=== PATIENT | female | born 1935 | race Caucasian/White ===

== ENCOUNTER 2016-07-23 10:09 | Emergency (ER) | payer MEDICARE, OTHER ==
[~2016-07-23] VITALS: Ht 162.6 cm; Wt 63.5 kg
[2016-07-23 10:10] VITALS: BP 126/64; PULSE 106; RESP 18; TEMP 98.8; O2SAT 95
--- NOTE | 2016-07-23 11:44 | RADRPT ---
EXAM DATE/TIME: 07/23/2016 11:16 [facility] COMPARISON: No previous studies available for comparison. INDICATIONS : Cough, congestion and diarrhea. MEDICAL HISTORY : None. SURGICAL HISTORY : None. ENCOUNTER: Initial ACUITY: 1 day PAIN SCORE: 0/10 LOCATION: Bilateral chest FINDINGS: PA and lateral views of the chest demonstrates hyperinflation which can be seen with CO PD. There are scattered nodular densities. No consolidation. Heart is normal in size. The mediastina l contours are unremarkable. Osseous structures are intact. CONCLUSION: Scattered nodular densities. CT chest recommended No evidence for an infiltrate. Gerson Thakkar MD on July 23, 2016 at 11:40 Board Certified Radiologist. This report was verified electronically.
--- NOTE | 2016-07-23 11:46 | PD ---
HPI Chief Complaint: Cold / Flu Symptoms Time Seen by Provider: 11:43 Travel History International Travel<30 days: No Contact w/Intl Traveler<30days: No Traveled to known affect area: No History of Present Illness HPI Patient is an 81-year-old female presenting to emergency for evaluation of cough , nasal congestion. Patient states her symptoms have been ongoing for 1 week. For the last 2 days she's had one loose bowel movement in the morning each day. She denies any shortness of breath, chest pain, nausea, vomiting, abdominal pain, fevers, chills. Patient presented wanting to see Dr. Fuller her primary doctor. Patient's past medical history significant for thyroid disorder. [facility] Past Medical History Immunizations Current: No Thyroid Disease: Yes Influenza Vaccination: No ?: Not Past Surgical History Tonsillectomy: Yes Social History Alcohol Use: Yes (SOCIAL) Tobacco Use: No (quit 30 years ago) Substance Use: No Allergies-Medications (Allergen,Severity, Reaction): Coded Allergies: Penicillin (Verified Allergy, Severe, HIVES, 07/23/16) Review of Systems Except as stated in HPI: all other systems reviewed are Neg General / Constitutional: Positive: Other (feels tired), No: Fever, Chills HENT: Positive: Rhinitis, Congestion, No: Headaches, Lightheadedness, Sore Throat, Neck Pain, Ear Discharge Cardiovascular: No: Chest Pain or Discomfort Respiratory: Positive: Cough, No: Shortness of Breath, Wheezing, Orthopnea, Pleuritic Pain Gastrointestinal: No: Nausea, Vomiting, Diarrhea, Abdominal Pain Genitourinary: No: Dysuria Musculoskeletal: No: Myalgias Neurologic: No: Weakness, Dizziness, Syncope Physical Exam Narrative GENERAL: Well-developed, well-nourished, alert elderly female. Resting comfortably in no acute distress. SKIN: Focused skin assessment warm/dry. HEAD: Atraumatic. Normocephalic. EYES: Pupils equal and round. No scleral icterus. No injection or drainage. ENT: No nasal bleeding or discharge. Mucous membranes pink and moist. Cobblestone appearance to posterior pharynx. NECK: Trachea midline. No JVD. CARDIOVASCULAR: Regular rate and rhythm. No murmur appreciated. RESPIRATORY: No accessory muscle use. Clear to auscultation. Breath sounds equal bilaterally. GASTROINTESTINAL: Abdomen soft, non-tender, nondistended. Hepatic and splenic margins not palpable. MUSCULOSKELETAL: No obvious deformities. No clubbing. No cyanosis. No edema. NEUROLOGICAL: Awake and alert. No obvious cranial nerve deficits. Motor grossly within normal limits. Normal speech. PSYCHIATRIC: Appropriate mood and affect; insight and judgment normal. Data Data Last Documented VS Vital Signs Date Time Temp Pulse Resp B/P Pulse Ox O2 Delivery O2 Flow Rate FiO2 07/23/16 11:39 96 07/23/16 10:10 98.8 106 18 126/64 Orders Chest, Pa & Lat (07/23/16 ) Ct Thorax/ Chest Wo Iv Contras (07/23/16 ) Complete Blood Count With Diff (07/23/16 12:34) Comprehensive Metabolic Panel (07/23/16 12:34) Labs Laboratory Tests Test 07/23/16 13:00 White Blood Count 11.1 TH/MM3 Red Blood Count 4.43 MIL/MM3 Hemoglobin 12.6 GM/DL Hematocrit 37.6 % Mean Corpuscular Volume 85.0 FL Mean Corpuscular Hemoglobin 28.4 PG Mean Corpuscular Hemoglobin 33.4 % Concent Red Cell Distribution Width 14.4 % Platelet Count 262 TH/MM3 Mean Platelet Volume 7.4 FL Neutrophils (%) (Auto) 85.1 % Lymphocytes (%) (Auto) 9.7 % Monocytes (%) (Auto) 4.7 % Eosinophils (%) (Auto) 0.1 % Basophils (%) (Auto) 0.4 % Neutrophils # (Auto) 9.4 TH/MM3 Lymphocytes # (Auto) 1.1 TH/MM3 Monocytes # (Auto) 0.5 TH/MM3 Eosinophils # (Auto) 0.0 TH/MM3 Basophils # (Auto) 0.0 TH/MM3 CBC Comment AUTO DIFF Sodium Level 134 MEQ/L Potassium Level 4.3 MEQ/L Chloride Level 101 MEQ/L Carbon Dioxide Level 23.6 MEQ/L Anion Gap 9 MEQ/L Blood Urea Nitrogen 14 MG/DL Creatinine 0.79 MG/DL Estimat Glomerular Filtration 70 ML/MIN Rate Random Glucose 126 MG/DL Calcium Level 9.1 MG/DL Total Bilirubin 1.3 MG/DL Aspartate Amino Transf 37 U/L (AST/SGOT) Alanine Aminotransferase 59 U/L (ALT/SGPT) Alkaline Phosphatase 129 U/L Total Protein 7.1 GM/DL Albumin 3.1 GM/DL [facility] Medical Decision Making Medical Screen Exam Complete: Yes Emergency Medical Condition: Yes Interpretation(s) Last Impressions Chest X-Ray 07/23/16 0000 Signed Impressions: Service Date/Time: Saturday, July 23, 2016 11:16 - CONCLUSION: Scattered nodular densities. CT chest recommended No evidence for an infiltrate. Gerson Thakkar MD Chest CT 07/23/16 0000 Signed Impressions: Service Date/Time: Saturday, July 23, 2016 12:05 - CONCLUSION: 1. Multiple bilateral pulmonary nodules characteristic malignancy likely too small for biopsy. Enlarged mediastinal nodes characteristic of malignancy as well 2. The mediastinal node may be accessible with difficulty or mediastinal B. should be considered Gilbert Tucker MD Vital Signs Date Time Temp Pulse Resp B/P Pulse Ox O2 Delivery O2 Flow Rate FiO2 07/23/16 11:39 96 07/23/16 10:10 98.8 106 18 126/64 95 Differential Diagnosis Bronchitis versus pneumonia versus URI versus other Narrative Course Patient is an 81-year-old female presenting to emergency for evaluation of a cough and nasal congestion for one week. Patient denies any other complaints at this time, she is otherwise healthy. She has a remote smoking history, quit 30 years ago. Patient was under the impression she was going to see her primary doctor here today. Likely she was told to come to the office because emergency department instead. Chest x-ray ordered and pending. Chest x-ray shows scattered nodular densities, it is recommending CT of the chest. CT of chest shows multiple bilateral pulmonary nodules that are characteristic for malignancy, likely too small for biopsy. There is enlarged mediastinal nodes characteristic of malignancy as well. The mediastinal node may be accessible with difficulty or mediastinal be should be considered. Dr. Hernandez discussed this with Dr. Fuller, we will obtain basic labs, Dr. Fuller will be down to see patient. Patient will be referred to oncology, see my attending physician's note. Patient was discharged home per my attending physician. Diagnosis Primary Impression: Lung nodules Additional Impression: URI (upper respiratory infection) Qualified Code: J06.9 - Viral upper respiratory tract infection Referrals: Oncologist Disposition: DISCHARGE HOME Condition: Stable Betzy Giron Ann [facility] Jul 23, 2016 11:46
--- NOTE | 2016-07-23 12:24 | RADRPT ---
EXAM DATE/TIME: 07/23/2016 12:05 [facility] COMPARISON: CHEST PA & LAT, July 23, 2016, 11:16. INDICATIONS : Cough, congestion for 4-5 days RADIATION DOSE: 3.35 CTDIvol (mGy) MEDICAL HISTORY : None SURGICAL HISTORY : Tonsillectomy. ENCOUNTER: Initial ACUITY: 4 - 6 days PAIN SCALE: 0/10 LOCATION: chest TECHNIQUE: Volumetric scanning of the chest was performed. Using automated exposure control and adjustment of t he mA and/or kV according to patient size, radiation dose was kept as low as reasonably achievable to obtain optimal diagnostic quality images. FINDINGS: There multiple bilateral pulmonary nodules the largest measuring 12 mm in the right lower lobe with m ultiple other nodules ranging from 3 mm to 10 mm. These may reflect metastatic disease. No pleural ef fusions are identified. There is bronchiectasis in the middle lobe, lingula and the right lower lobe. No pleural effusions are identified. A small hiatal hernia is present. Examination of the mediastinum demonstrates enlarged lymph nodes in the anterior mediastinum measurin g 3 cm x 1.5 cm as well as enlarged precarinal node measuring 2.5 cm. No axillary or hilar abnormalit ies are identified. Coronary artery calcifications are present. The visualized upper abdomen demonstr ates no abnormality. CONCLUSION: 1. Multiple bilateral pulmonary nodules characteristic malignancy likely too small for biopsy. Enlarg ed mediastinal nodes characteristic of malignancy as well 2. The mediastinal node may be accessible with difficulty or mediastinal B. should be considered Gilbert Tucker MD on July 23, 2016 at 12:16 Board Certified Radiologist. This report was verified electronically.
[2016-07-23 13:37] LABS: AUTOMATED NEUTROPHIL # 9.4 TH/MM3 (1.8-7.7); BASOPHIL % 0.4 % (0.0-2.0); EOSINOPHIL % 0.1 % (0.0-4.0); HEMATOCRIT 37.6 % (35.0-46.0); LYMPH % 9.7 % (9.0-44.0); LYMPHOCYTE # 1.1 TH/MM3 (1.0-4.8); MEAN CORPUSCULAR HEMOGLOBIN 28.4 PG (27.0-34.0); MEAN CORPUSCULAR HGB CONC 33.4 % (32.0-36.0); MONO % 4.7 % (0.0-8.0); NEUT % 85.1 % (16.0-70.0); PLATELET COUNT 262 TH/MM3 (150-450); RED BLOOD COUNT 4.43 MIL/MM3 (4.00-5.30); RED CELL DISTRIBUTION WIDTH 14.4 % (11.6-17.2); WHITE BLOOD COUNT 11.1 TH/MM3 (4.0-11.0)
[2016-07-23 13:43] LABS: HEMO FLAGS AUTO DIFF
[2016-07-23 13:50] LABS: ALT (GPT) 59 U/L (10-53); ANION GAP 9 MEQ/L (5-15); AST (GOT) 37 U/L (15-37); BICARBONATE 23.6 MEQ/L (21.0-32.0); BLOOD UREA NITROGEN 14 MG/DL (7-18); CHLORIDE 101 MEQ/L (98-107); GLOMERULAR FILTRATION RATE 70 ML/MIN (>89); POTASSIUM 4.3 MEQ/L (3.5-5.1); SODIUM (NA) 134 MEQ/L (136-145)
[2016-07-23 13:53] LABS: ALKALINE PHOSPHATASE 129 U/L (45-117); TOTAL BILIRUBIN ADULT 1.3 MG/DL (0.2-1.0)
--- NOTE | 2016-07-23 14:02 | PD ---
Data Data Last Documented VS Vital Signs Date Time Temp Pulse Resp B/P Pulse Ox O2 Delivery O2 Flow Rate FiO2 07/23/16 11:39 96 07/23/16 10:10 98.8 106 18 126/64 Orders Chest, Pa & Lat (07/23/16 ) Ct Thorax/ Chest Wo Iv Contras (07/23/16 ) Complete Blood Count With Diff (07/23/16 12:34) Comprehensive Metabolic Panel (07/23/16 12:34) Labs Laboratory Tests Test 07/23/16 13:00 White Blood Count 11.1 TH/MM3 Red Blood Count 4.43 MIL/MM3 Hemoglobin 12.6 GM/DL Hematocrit 37.6 % Mean Corpuscular Volume 85.0 FL Mean Corpuscular Hemoglobin 28.4 PG Mean Corpuscular Hemoglobin 33.4 % Concent Red Cell Distribution Width 14.4 % Platelet Count 262 TH/MM3 Mean Platelet Volume 7.4 FL Neutrophils (%) (Auto) 85.1 % Lymphocytes (%) (Auto) 9.7 % Monocytes (%) (Auto) 4.7 % Eosinophils (%) (Auto) 0.1 % Basophils (%) (Auto) 0.4 % Neutrophils # (Auto) 9.4 TH/MM3 Lymphocytes # (Auto) 1.1 TH/MM3 Monocytes # (Auto) 0.5 TH/MM3 Eosinophils # (Auto) 0.0 TH/MM3 Basophils # (Auto) 0.0 TH/MM3 CBC Comment AUTO DIFF Sodium Level 134 MEQ/L Potassium Level 4.3 MEQ/L Chloride Level 101 MEQ/L Carbon Dioxide Level 23.6 MEQ/L Anion Gap 9 MEQ/L Blood Urea Nitrogen 14 MG/DL Creatinine 0.79 MG/DL Estimat Glomerular Filtration 70 ML/MIN Rate Random Glucose 126 MG/DL Calcium Level 9.1 MG/DL Total Bilirubin 1.3 MG/DL Aspartate Amino Transf 37 U/L (AST/SGOT) Alanine Aminotransferase 59 U/L (ALT/SGPT) Alkaline Phosphatase 129 U/L Total Protein 7.1 GM/DL Albumin 3.1 GM/DL [facility] Supervised Visit with JONNATHAN: Yes Narrative Course The history, exam, and medical decision-making in the associated mid-level provider note were completed with my assistance. I reviewed and agree with the findings presented. I attest that I had a [id number] encounter with the patient on the same day, and personally performed and documented my assessment and findings in the medical record. *My assessment and Findings: 81-year-old woman who presents to the emergency department complaining of URI symptoms. She looks well. X-ray showed some nodular densities. CT scan confirms multiple lung nodules, and mediastinal adenopathy suggestive of malignancy. She has no primary physician. They moved to the area about a week or so ago. They are family friends of Dr. Montemayor. Patient will need further evaluation. I called and spoke to Dr. Zavaleta who states that we could refer her to oncology through the new patient referral line and that they could continue her further evaluation given that she has no primary. Diagnosis Primary Impression: URI (upper respiratory infection) Qualified Code: J06.9 - Viral upper respiratory tract infection Additional Impression: Lung nodules Additional Instruction: Call the oncology new patient referral line to make an appointment with one of the oncologists. That number can be reached through [phone]. Return to the emergency department for any new or worsening symptoms. Med/Other Pt SpecificInfo: No Change to Meds Disposition: 01 DISCHARGE HOME Condition: Stable Pete Hernandez MD Jul 23, 2016 14:02
[2016-07-23 14:20] LABS: BANDS 33 % (0-6); METAMYELOCYTES 1 % (0-1); NEUTROPHIL # MANUAL DIFF 9.2 TH/MM3 (1.8-7.7); POLYS (SEG NEUTROPHILS) 49 % (16-70); WBC DIFF SAMPLE 100
[2016-07-23 14:21] VITALS: BP 122/62
[2016-07-23 14:21] LABS: PLATELET ESTIMATE SMEAR NORMAL (NORMAL); PLATELET MORPHOLOGY NORMAL (NORMAL); SCAN/DIFF FINAL DIFF MANUAL
== END 2016-07-23 14:44 | disposition home or self-care (01) ==
LOC: NEPD 10:09
DX: R91.8 Other nonspecific abnormal finding of lung field (principal); J06.9 Acute upper respiratory infection, unspecified
CPT/HCPCS: 71020; 71250; 80053; 85007; 85027

== ENCOUNTER → 2017-05-01 | Outpatient (CLI) | payer MEDICARE, OTHER ==
--- NOTE | 2017-05-03 08:37 | RSPPFT ---
DATE OF PROCEDURE: 05/01/17 COMMENTS: VOLUMES DYNAMIC: FVC and FEV1 normal. STATIC: FRC, RV and TLC normal. FLOWS: FEV1% moderately reduced; FEF 25-75 severely reduced. DIFFUSION: Moderately reduced. FLOW VOLUME LOOP: Pattern of variable intrathoracic airways obstruction. IMPRESSION: Mild to moderate obstructive ventilatory defect with no significant hyperinflation. There is a moderate reduction in diffusion and no improvement post-bronchodilator.
== END ==
LOC: HRSP 09:44
PROVIDERS: ATTEND Internal Medicine
DX: J44.9 Chronic obstructive pulmonary disease, unspecified (principal)
CPT/HCPCS: 94060; 94618; 94726; 94729